=== PATIENT | male | born 1950 | race American Indian/Alaskan Native ===

== ENCOUNTER 2019-04-29 15:44 | Emergency (ER) | payer MEDICARE ==
--- NOTE | 2019-04-29 15:46 | EDM.PDOC ---
ED HPI GENERAL MEDICAL PROBLEM - General Chief Complaint: Lower Extremity Injury/Pain Stated Complaint: AMBULANCE Time Seen by Provider: 04/29/19 15:46 Source of Information: Reports: Patient, RN, RN Notes Reviewed History Limitations: Reports: No Limitations - History of Present Illness INITIAL COMMENTS - FREE TEXT/NARRATIVE: Patient presents to ER per [facility] with complaint of right hip pain and right arm pain. Patent states he fell last Saturday. States he is unsure if he was knocked out or not. Patient complains of right upper arm pain, right sided abdomen pain and right hip pain. States he did not come in earlier because he "hates hospitals". Onset Date: 04/22/19 Duration: Getting Worse Location: Reports: Other (right hip and arm ) Quality: Reports: Ache Severity: Severe Improves with: Reports: None Worsens with: Reports: None Associated Symptoms: Reports: No Other Symptoms Right Hip Pain Score (Numeric/FACES): 7 - Related Data Allergies Allergy/AdvReac Type Severity Reaction Status Date / Time No Known Allergies Allergy Verified 04/29/19 15:50 Review of Systems - Review of Systems Review Of Systems: Comprehensive ROS is negative, except as noted in HPI. ED EXAM, GENERAL - Physical Exam Exam: See Below Exam Limited By: No Limitations General Appearance: Alert Eye Exam: Bilateral Eye: EOMI, Normal Inspection, PERRL Ears: Normal External Exam, Normal Canal, Hearing Grossly Normal, Normal TMs Nose: Normal Inspection, Normal Mucosa, No Blood Throat/Mouth: Other (poor dental health) Head: Atraumatic, Normocephalic Neck: Normal Inspection, Supple, Non-Tender, Full Range of Motion Respiratory/Chest: Other (diminished) Cardiovascular: Normal Peripheral Pulses, Regular Rate, Rhythm, No Edema, No Gallop, No JVD, No Murmur, No Rub GI/Abdominal: Other (tender right) (Male) Exam: Deferred Rectal (Males) Exam: Deferred Back Exam: Normal Inspection, Full Range of Motion, NT Extremities: Other (pain right shoulder/upper arm and pain right hip. ) Neurological: Alert, Oriented, CN II-XII Intact, Normal Cognition, Normal Gait, Normal Reflexes, No Motor/Sensory Deficits Psychiatric: Normal Affect, Normal Mood Skin Exam: Warm, Dry, Intact, Normal Color, No Rash Lymphatic: No Adenopathy Course - Vital Signs Last Recorded V/S: Last Vital Signs Temp 98.9 F 04/29/19 15:44 Pulse 69 04/29/19 15:44 Resp 18 04/29/19 15:44 BP 122/61 04/29/19 15:44 Pulse Ox 99 04/29/19 15:44 - Orders/Labs/Meds Orders: Active Orders 24 hr Category Date Time Status Peripheral IV Care [RC] . DIRECTED Care 04/29/19 16:03 Active Peripheral IV Insertion Adult [OM.PC] Stat Oth 04/29/19 16:01 Ordered Labs: Laboratory Tests 04/29/19 04/29/19 04/29/19 Range/Units 16:18 16:18 16:45 WBC 3.1 L (5.0-10.0) 10^3/uL RBC 3.56 L (4.6-6.2) 10^6/uL Hgb 11.6 L (14.0-18.0) g/dL Hct 35.0 L (40.0-54.0) % MCV 98.3 (80-100) fL MCH 32.6 (27.0-34.0) pg MCHC 33.1 (33.0-35.0) g/dL Plt Count 56 L (150-450) 10^3/uL Neut % (Auto) 53.1 (42.2-75.2) % Lymph % (Auto) 20.5 (20.5-50.1) % [place] % (Auto) 20.5 H (2-8) % Eos % (Auto) 4.9 H (1.0-3.0) % Baso % (Auto) 1.0 (0.0-1.0) % Add Manual Diff Yes Neutrophils % (Manual) 61 (42-75) % Lymphocytes % (Manual) 21 (20-50) % Monocytes % (Manual) 11 H (2-8) % Eosinophils % (Manual) 6 H (1-3) % Metamyelocytes % 1 Platelet Estimate Decreased Sodium 139 (135-145) mmol/L Potassium 3.3 L (3.6-5.0) mmol/L Chloride 108 (101-111) mmol/L Carbon Dioxide 25.0 (21.0-31.0) mmol/L Anion Gap 9.3 BUN 13 (7-18) mg/dL Creatinine 0.7 (0.6-1.3) mg/dL Est Cr Clr Drug Dosing 109.07 mL/min Estimated GFR (MDRD) > 60 BUN/Creatinine Ratio 18.57 Glucose 99 (74-105) mg/dL Calcium 8.1 L (8.4-10.2) mg/dl Total Bilirubin 1.8 H (0.2-1.0) mg/dL AST 41 (10-42) IU/L ALT 22 (10-60) IU/L Alkaline Phosphatase 120 (42-121) IU/L Total Protein 6.9 (6.7-8.2) g/dl Albumin 3.0 L (3.2-5.5) g/dl Globulin 3.9 Albumin/Globulin Ratio 0.77 Urine Color Dark yellow (YELLOW) Urine Appearance Clear (CLEAR) Urine pH 7.5 (5.0-9.0) Ur Specific [place] 1.020 (1.005-1.030) Urine Protein Negative (NEGATIVE) Urine Glucose (UA) Negative (NEGATIVE) Urine Ketones Negative (NEGATIVE) Urine Occult Blood Negative (NEGATIVE) Urine Nitrite Negative (NEGATIVE) Urine Bilirubin Small H (NEGATIVE) Urine Urobilinogen 4.0 H (0.2-1.0) mg/dL Ur Leukocyte Esterase Negative (NEGATIVE) Meds: Medications Discontinued Medications Generic Name Dose Route Start Last Admin Trade Name Freq PRN Reason Stop Dose Admin Iopamidol 100 ml 04/29/19 16:18 04/29/19 16:43 Isovue-300 (61%) IVPUSH 04/29/19 16:19 75 ml ONETIME ONE Administration Sodium Chloride 10 ml 04/29/19 16:01 04/29/19 16:29 Saline Flush FLUSH 10 ml ASDIRECTED PRN Administration Keep Vein Open - Radiology Interpretation Free Text/Narrative:: head CT without contrast: atrophy. Chronic multi infarct ischemic disease. No skull fracture or signs of acute intracranial bleed. no mass lesions or hydrocephalus. Right shoulder x-ray: Evidence of previous orthopedic resection head and proximal diameter metaphysis of the right humerus. Evidence of old healed fractures of the glenoid of the right scapula. Underlying healed fracture deformity posterior lateral right fourth and fifth ribs. No acromial clavicular separation. No acute fracture right shoulder or upper thorax No pneumothorax. Abdomen pelvis CT with contrast: Solitary suspicious 2.6cm diameter vascular mass lesion right lobe of the liver could represent large hemangioma however suggest MRI follow-up (particularly if any known malignancies). Appearance not hematoma or abscess. See radiologist's report - Re-Assessments/Exams Free Text/Narrative Re-Assessment/Exam: Discussed patient care with Dr. Lyons, Neurosurgeon at [facility]. She states the patient should come to ER at [facility] and be admitted. Discussed patient care with Dr. Smiley in the ER at [facility] who agreed to accept the patient for transfer to [facility] in [place]. Departure - Departure Time of Disposition: 18:43 Disposition: DC/Tfer to Acute Hospital 02 Condition: Fair Clinical Impression: Compression fracture, Mass of right lobe of liver, Thrombocytopenia Fall at home Qualifiers: Encounter type: initial encounter Qualified Code(s): W19.XXXA - Unspecified fall, initial encounter; Y92.009 - Unspecified place in unspecified non- institutional (private) residence as the place of occurrence of the external cause Leukopenia Qualifiers: Leukopenia type: unspecified Qualified Code(s): D72.819 - Decreased white blood cell count, unspecified - Discharge Information *PRESCRIPTION DRUG MONITORING PROGRAM REVIEWED*: No *COPY OF PRESCRIPTION DRUG MONITORING REPORT IN PATIENT BAN: No Referrals: PCP,Unobtain [Primary Care Provider] - Forms: ED Department Discharge, Interfacility Transfer MAI Sepsis Event Note - Focused Exam Date Exam was Performed: 04/30/19 Time Exam was Performed: 07:24 - My Orders Last 24 Hours: My Active Orders 04/29/19 16:01 Peripheral IV Insertion Adult [OM.PC] Stat 04/29/19 16:03 Peripheral IV Care [RC] . DIRECTED - Assessment/Plan Last 24 Hours: My Active Orders 04/29/19 16:01 Peripheral IV Insertion Adult [OM.PC] Stat 04/29/19 16:03 Peripheral IV Care [RC] . DIRECTED
[2019-04-29] MEDS ORDERED: Sodium Chloride 0.9% 10 ML Syringe FLUSH PRN (16:01)
[2019-04-29] MEDS ORDERED: Iopamidol 612 MG/ML 100 ML Bottle IVPUSH ONE (16:18)
--- NOTE | 2019-04-29 16:41 | CT ---
EXAMINATION: Head wo Cont SEX: Male AGE: 68 years CLINICAL HISTORY: 68-year-old male injured in a fall. Scan technique: Volume acquisition of data emergency unenhanced CT scan of the head and brain obtained with patient lying supine on the Siemens multi slice scanner [place], [place]. All data archived in the PACS system for storage, reformatting axial/sagittal/coronal planes and study. No comparison exams immediately available. INTERPRETATION: Extensive midline falx, dense pineal, symmetric choroid plexus calcifications (faint calcifications in the basal ganglia, bilaterally). Severe atrophy pattern which is symmetric with underlying mirror-image normal ventricular system. No hydrocephalus. Uniformly thick bony calvarium without sign of skull fracture, underlying brain contusion or epidural/subdural hematoma. Multiple scattered areas of decreased attenuation in subcortical and deep white matter i.e. MID (multi-infarct disease). No supratentorial or posterior fossa mass lesion. No sign of acute intracerebral/intraventricular/subarachnoid bleed. 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 INTERPRETATION: Atrophy. Chronic multi-infarct ischemic disease. No skull fracture or signs of acute intracranial bleed. No mass lesions or hydrocephalus. 1. CONCLUSION:
--- NOTE | 2019-04-29 16:46 | CR ---
EXAMINATION: Shoulder Comp Rt SEX: Male AGE: 68 years CLINICAL HISTORY: 68-year-old male injured in a fall (7 days ago) complaining of right arm pain. Interpretation: Evidence of previous orthopedic resection head and proximal diametaphysis of the right humerus. Evidence of old healed fractures of the glenoid of the right scapula. Underlying healed fracture deformity posterior lateral right fourth and fifth ribs. No acromioclavicular separation. No acute fracture right shoulder or upper thorax. No pneumothorax.
--- NOTE | 2019-04-29 16:59 | CT ---
EXAMINATION: Abdomen Pelvis w Cont SEX: Male AGE: 68 years CLINICAL HISTORY: 68-year-old 200 pound male injured in a fall (7 days ago) complaining now of right arm, right hip, and abdominal pain. Rule out visceral laceration or rupture. Scan technique: Volume acquisition of data from the abdomen and pelvis obtained after without oral contrast but during intravenous ministration 75 cc nonionic Isovue contrast (3 cc/s via injector) while patient was lying supine on the Siemens multislice scanner [place], [place]. All data archived in the PACS system for storage, reformatting axial/sagittal/coronal planes and study. Interpretation: 1. Large heart and coronary artery calcifications. No pericardial effusion. Lung bases clear. 2. Osteoporosis and severe insufficiency FRACTURES T12, L1, L2 and L3 (vertebral plana) spine. No comparison films. 3. Orthopedic nail right hip. No acute fracture or dislocation either hip or pelvis. 4. Cholecystectomy. *Solitary suspicious 2.6 cm diameter vascular mass lesion right lobe of the liver could represent large hemangioma however suggest MRI follow-up (particularly if any known malignancies). Appearance not hematoma or abscess. 5. Stomach, spleen, pancreas, adrenal glands and kidneys unremarkable. No renal cortical mass lesion, nephrolithiasis or obstructive uropathy. Heterogenous density dense small midline prostate gland. Mild urinary bladder thickening suggesting chronic outlet obstruction. Clinical? 5. No pelvic or abdominal mass lesion, diverticulosis, mesenteric or retroperitoneal lymphadenopathy, inflammatory "dirty" peritoneal fat, mechanical bowel obstruction, ascites or free intraperitoneal air. CONCLUSION: Solitary intrahepatic lesion. No other indication primary or metastatic intraperitoneal disease. Lumbar fractures.
[2019-04-29 17:02] LABS: ANION GAP 9.3; CHLORIDE,CL 108 mmol/L (101-111); SODIUM,NA 139 mmol/L (135-145)
--- NOTE | 2019-05-04 16:29 | HP ---
HISTORY OF PRESENT ILLNESS: The patient is a 68-year-old gentleman, who was admitted to Swing bed for further PT and OT. He had a ground-level fall about 7 days ago, from which he sustained a right pubic ramus fracture and compression fracture of T12 and L1, L2, and L3. The patient was seen by Neurosurgery in [facility] and basically was managed conservatively, and the patient was discharged to swing bed for PT and OT. The patient currently denies any significant ongoing complaint except for some pain on his right hip and diminished range of motion on his right shoulder. He denies any chest pain, fever, chills, shortness of breath, abdominal pain, or any other complaints. PAST MEDICAL HISTORY: Remarkable for previous injury to the right shoulder and history of fracture of the ribs on the right and hypothyroidism. FAMILY HISTORY: Noncontributory. SOCIAL HISTORY: The patient is a nonsmoker. Drinks alcohol very occasionally, about once a month. No illicit drug use. REVIEW OF SYSTEMS: As in HPI. The rest of the review of systems is negative. CURRENT MEDICATIONS: Oxycodone, naproxen, and levothyroxine. ALLERGIES: No known drug allergies. PHYSICAL EXAMINATION: General: Very pleasant gentleman. He is alert and oriented, not in any acute distress. Vital Signs: Blood pressure is 133/61, pulse of 72, respiration of 18, temperature of 98.9, and saturation is 100% on room air. SHEENT: Normocephalic. There are pink palpebral conjunctivae. Sclerae anicteric. Neck: No JVD. No lymphadenopathy. Heart: Regular rate and rhythm. Normal S1 and S2. No gallops. No rubs. Lungs: Equal bilaterally. No crackles. No wheezing. Abdomen: Soft and nontender. Extremities: Negative for any pedal edema. No calf tenderness. ADMITTING DIAGNOSES: 1. History of fall with right pubic ramus fracture and compression of T12 and L1, L2, and L3. 2. Hypothyroidism. PLAN: We will continue with his present management, and we will continue with order for PT and OT. The patient is a full code. [facility] /[id number]
== END 2019-04-29 18:42 ==
LOC: DL.ED 15:44
DX: M25.551 Pain in right hip (principal); D72.819 Decreased white blood cell count, unspecified
CPT/HCPCS: 36415; 70450; 73030-RT; 74177; 80053; 81003; 85025; 99285; 99285-25; Q9967

== ENCOUNTER 2019-05-04 10:46 | Inpatient (IN) | payer MEDICARE, MEDICAID ==
[2019-05-04] MEDS ORDERED: Docusate Sodium 100 MG Cap PO PRN (14:44)
[2019-05-04] MEDS ORDERED: Acetaminophen 325 MG Tab PO PRN (14:44)
[2019-05-04] MEDS: oxyCODONE 5 MG Tab PO PRN (23:26)
[2019-05-05] MEDS: oxyCODONE 5 MG Tab PO PRN ×3 (03:53→15:13)
[2019-05-05] MEDS: Levothyroxine 150 MCG Tab PO SCH (06:15)
[2019-05-05 06:57] LABS: ANION GAP 10.1; CHLORIDE,CL 104 mmol/L (101-111); SODIUM,NA 134 mmol/L (135-145)
[2019-05-05] MEDS ORDERED: Enoxaparin 30 MG/0.3 ML Syringe SUBCUT SCH (09:00)
[2019-05-06] MEDS: oxyCODONE 5 MG Tab PO PRN ×3 (01:21→20:52)
[2019-05-06] MEDS: Levothyroxine 150 MCG Tab PO SCH (05:12)
[2019-05-07] MEDS: Levothyroxine 150 MCG Tab PO SCH (05:33)
[2019-05-07] MEDS: oxyCODONE 5 MG Tab PO PRN (10:58)
[2019-05-07] MEDS: Ciprofloxacin 500 MG Tab PO SCH (20:28)
[2019-05-08] MEDS: Levothyroxine 150 MCG Tab PO SCH (05:37)
[2019-05-08] MEDS: oxyCODONE 5 MG Tab PO PRN (08:51)
[2019-05-08] MEDS: Ciprofloxacin 500 MG Tab PO SCH ×2 (08:51→20:36)
[2019-05-08] MEDS ORDERED: Benzocaine/Cetylpyridinium/Menthol Lozenge MUCMEM PRN (09:35)
[2019-05-09] MEDS: Levothyroxine 150 MCG Tab PO SCH (06:19)
[2019-05-09] MEDS: oxyCODONE 5 MG Tab PO PRN (06:53)
[2019-05-09] MEDS: Ciprofloxacin 500 MG Tab PO SCH ×2 (09:19→20:15)
[2019-05-10] MEDS: Levothyroxine 150 MCG Tab PO SCH (06:07)
[2019-05-10] MEDS: Ciprofloxacin 500 MG Tab PO SCH ×2 (09:33→21:43)
--- NOTE | 2019-05-10 13:05 | PCM.PN ---
- General Info Date of Service: 05/10/19 Admission Dx/Problem (Free Text): admitted to Swing bed for continuation of PT/OT for right pubic ramus fracture and compression fracture of T12, L1, L2 and L3 Subjective Update: Pt was seen in room doing well, No nausea or vomiting, No fever or chill, appetite is good, pain is better and able to move with walker Functional Status: Reports: Pain Controlled, Tolerating Diet, Ambulating, Urinating - Review of Systems General: Reports: Weakness, Appetite (good). Denies: Fever, Chills HEENT: Denies: Sinus Congestion, Sore Throat, Visual Changes Pulmonary: Denies: Shortness of Breath, Cough, Sputum, Wheezing Cardiovascular: Denies: Chest Pain, Dyspnea on Exertion, Lightheadedness Gastrointestinal: Denies: Abdominal Pain, Diarrhea, Nausea, Vomiting Genitourinary: Denies: Dysuria, Burning, Urgency Musculoskeletal: Reports: Back Pain, Other (hip pain). Denies: Neck Pain, Shoulder Pain Skin: Denies: Cyanosis, Jaundice, Bruising, Pruritis Neurological: Denies: Confusion, Numbness, Tingling, Tremors Psychiatric: Reports: No Symptoms - Patient Data Vitals - Most Recent: Last Vital Signs Temp 36.8 C 05/10/19 08:00 Pulse 65 05/10/19 08:00 Resp 20 05/10/19 08:00 BP 142/63 H 05/10/19 08:00 Pulse Ox 95 05/10/19 08:00 Weight - Most Recent: 83.733 kg I&O - Last 24 Hours: Intake & Output 05/09/19 05/10/19 05/10/19 22:59 06:59 14:59 Intake Total 1930 469 7813 Output Total 500 600 120 Balance 1200 -400 920 Med Orders - Current: Current Medications Acetaminophen (Tylenol) 650 mg PO Q4H PRN PRN Reason: Pain (Mild 1-3)/fever Benzocaine/Menthol (Cepacol Sore Throat) 1 lozenge MUCMEM TID PRN PRN Reason: Cough Last Admin: 05/08/19 10:38 Dose: 1 lozenge Ciprofloxacin (Ciprofloxacin Hcl) 500 mg PO BID MICHELLE Last Admin: 05/10/19 09:33 Dose: 500 mg Docusate Sodium (Colace) 100 mg PO BID PRN PRN Reason: Constipation Levothyroxine Sodium (Levothyroxine) 150 mcg PO ACBREAKFAST MICHELLE Last Admin: 05/10/19 06:07 Dose: 150 mcg Oxycodone HCl (Oxycodone) 5 mg PO Q4H PRN PRN Reason: Pain (moderate 4-6) Last Admin: 05/09/19 06:53 Dose: 5 mg Discontinued Medications Enoxaparin Sodium (Lovenox) 30 mg SUBCUT DAILY MICHELLE - Exam Quality Assessment: DVT Prophylaxis. No: Supplemental Oxygen, Urine Catheter General: Alert, Oriented, Cooperative, No Acute Distress HEENT: Pupils Equal, EOMI, Mucous Membr. Moist/[place] Neck: No JVD, No Thyromegaly. No: Lymphadenopathy Lungs: Clear to Auscultation, Normal Respiratory Effort. No: Crackles, Wheezing Cardiovascular: Regular Rate, Regular Rhythm GI/Abdominal Exam: Normal Bowel Sounds, Soft, No Organomegaly, No Distention (Male) Exam: Deferred Back Exam: Normal Inspection Extremities: Normal Inspection, No Pedal Edema Skin: Warm, Dry, Intact Neurological: No New Focal Deficit Psy/Mental Status: Alert, Normal Affect, Normal Mood Sepsis Event Note - Evaluation Sepsis Screening Result: No Definite Risk - Focused Exam Vital Signs: Vital Signs Temp Pulse Resp BP Pulse Ox 05/10/19 08:00 36.8 C 65 20 142/63 H 95 Date Exam was Performed: 05/10/19 Time Exam was Performed: 12:53 - Problem List & Annotations (1) Compression fracture SNOMED Code(s): 554383840 Code(s): LNO3705 - Status: Acute Current Visit: No (2) Fall at home SNOMED Code(s): 15297101 Code(s): W19.XXXA - UNSPECIFIED FALL, INITIAL ENCOUNTER; Y92.009 - [facility] [email or web address] PLACE IN [facility] NON-INSTITUT (PRIVATE) RESIDENCE PLACE Status: Acute Current Visit: No - Problem List Review Problem List Initiated/Reviewed/Updated: Yes - Plan Plan:: This is a 68 y/o M with past medical history of right shoulder pain, Hypothyroidism and history of rib fracture. The pt is now admitted to swing bed for continuation of PT/OT. The pt had a ground Level fall and from which he sustained right pubic ramus fracture and compression fracture of T12, L1,L2 and L3. He was seen by Neurosurgery at [facility] and recommended conservative management. Impression and Plan: 1. S/P right pubic ramus fracture and compression fracture of T12, L1,L2 and L3 -Was seen by neurosurgery recommended conservative management -Will continue PT/OT -Continue pain control, is on oxycodone 2. Hypothyroidism: Continue Levothyroxine 3. Left arm antecubital Infiltration: pt had infiltration from IV and the area was warm and red, possible soft tissue infection -He is on Ciprofloxacin 250 mg BID and Improving, continue for another 5 days DVT prophylaxis: not on enoxaparin or heparin because of Low platelet Code status: Full Code
[2019-05-11] MEDS: Levothyroxine 150 MCG Tab PO SCH (06:08)
[2019-05-11] MEDS: Ciprofloxacin 500 MG Tab PO SCH ×2 (08:52→20:59)
[2019-05-11] MEDS: oxyCODONE 5 MG Tab PO PRN (16:11)
[2019-05-12] MEDS: oxyCODONE 5 MG Tab PO PRN ×2 (03:38→10:30)
[2019-05-12] MEDS: Levothyroxine 150 MCG Tab PO SCH (05:56)
[2019-05-12] MEDS: Ciprofloxacin 500 MG Tab PO SCH (10:33)
[2019-05-13] MEDS: oxyCODONE 5 MG Tab PO PRN ×3 (00:46→22:41)
[2019-05-13] MEDS: Levothyroxine 150 MCG Tab PO SCH (05:34)
[2019-05-14] MEDS: Levothyroxine 150 MCG Tab PO SCH (05:29)
[2019-05-14] MEDS: oxyCODONE 5 MG Tab PO PRN (05:30)
--- NOTE | 2019-05-14 11:03 | PCM.PN ---
- General Info Date of Service: 05/14/19 Subjective Update: No new complaint today Continues to have intermittent pain No nausea and no vomiting. Appetite is good - Review of Systems General: Reports: No Symptoms Pulmonary: Reports: No Symptoms Cardiovascular: Reports: No Symptoms Gastrointestinal: Reports: No Symptoms - Patient Data Vitals - Most Recent: Last Vital Signs Temp 36.9 C 05/14/19 07:39 Pulse 68 05/14/19 07:39 Resp 18 05/14/19 07:39 BP 120/60 05/14/19 07:39 Pulse Ox 97 05/14/19 07:39 Weight - Most Recent: 82.917 kg I&O - Last 24 Hours: Intake & Output 05/13/19 05/14/19 05/14/19 22:59 06:59 14:59 Intake Total 740 600 Output Total 200 Balance 740 400 Med Orders - Current: Current Medications Acetaminophen (Tylenol) 650 mg PO Q4H PRN PRN Reason: Pain (Mild 1-3)/fever Benzocaine/Menthol (Cepacol Sore Throat) 1 lozenge MUCMEM TID PRN PRN Reason: Cough Last Admin: 05/08/19 10:38 Dose: 1 lozenge Docusate Sodium (Colace) 100 mg PO BID PRN PRN Reason: Constipation Levothyroxine Sodium (Levothyroxine) 150 mcg PO ACBREAKFAST ON LICENSE OF [facility] Last Admin: 05/14/19 05:29 Dose: 150 mcg Oxycodone HCl (Oxycodone) 5 mg PO Q4H PRN PRN Reason: Pain (moderate 4-6) Last Admin: 05/14/19 05:30 Dose: 5 mg Discontinued Medications Ciprofloxacin (Ciprofloxacin Hcl) 500 mg PO BID ON LICENSE OF [facility] Stop: 05/12/19 09:01 Last Admin: 05/12/19 10:33 Dose: 500 mg Enoxaparin Sodium (Lovenox) 30 mg SUBCUT DAILY ON LICENSE OF [facility] - Exam General: Alert, Oriented, Cooperative Neck: Supple Lungs: Clear to Auscultation, Normal Respiratory Effort Sepsis Event Note - Evaluation Sepsis Screening Result: No Definite Risk - Focused Exam Vital Signs: Vital Signs Temp Pulse Resp BP Pulse Ox 05/14/19 07:39 36.9 C 68 18 120/60 97 Date Exam was Performed: 05/14/19 Time Exam was Performed: 11:01 - Problem List Review Problem List Initiated/Reviewed/Updated: Yes - Plan Plan:: This is a 68 y/o M with past medical history of right shoulder pain, Hypothyroidism and history of rib fracture. The pt is now admitted to swing bed for continuation of PT/OT. The pt had a ground Level fall and from which he sustained right pubic ramus fracture and compression fracture of T12, L1,L2 and L3. He was seen by Neurosurgery at [facility] and recommended conservative management. Impression and Plan: 1. S/P right pubic ramus fracture and compression fracture of T12, L1,L2 and L3 -Was seen by neurosurgery recommended conservative management -Will continue PT/OT -Continue pain control, is on oxycodone Continue current management 2. Hypothyroidism: Continue Levothyroxine 3. Left arm antecubital Infiltration: pt had infiltration from IV and the area was warm and red, possible soft tissue infection -He is on Ciprofloxacin 250 mg BID and Improving, continue for another 5 days Continue medications for now 4. Patient wants to go on a therapeutic leave. he'll be gone for less than 24 hours DVT prophylaxis: not on enoxaparin or heparin because of Low platelet Code status: Full Code
[2019-05-15] MEDS: Levothyroxine 150 MCG Tab PO SCH (06:48)
--- NOTE | 2019-05-15 12:05 | PCM.DCSUM1 ---
Discharge Summary - Hospital Course Free Text/Narrative:: This is a 68 y/o M with past medical history of right shoulder pain, Hypothyroidism and history of rib fracture. The pt was now admitted to swing bed for continuation of PT/OT. The pt had a ground Level fall and from which he sustained right pubic ramus fracture and compression fracture of T12, L1,L2 and L3. He was seen by Neurosurgery at [facility] and recommended conservative management.Did well with PT/OT. Will be discharged home. Impression and Plan: 1. S/P right pubic ramus fracture and compression fracture of T12, L1,L2 and L3 -Was seen by neurosurgery recommended conservative management -Continue pain control, is on oxycodone Continue current management 2. Hypothyroidism: Continue Levothyroxine 3. Left arm antecubital Infiltration: pt had infiltration from IV and the area was warm and red, possible soft tissue infection Was treated with ciprofloxacin. - Discharge Data Discharge Date: 05/15/19 Discharge Disposition: Home, Self-Care 01 Condition: Good - Referral to Home Health Primary Care Physician: Eduardo RODRIGUEZ [place] - Patient Summary/Data Consults: Consultations 05/04/19 14:44 OT Evaluation and Treatment [CONS] Routine PT Evaluation and Treatment [CONS] Routine - Discharge Plan Prescriptions/Med Rec: oxyCODONE 5 mg PO Q4HR PRN #20 tablet PRN Reason: Pain (Moderate 4-6) Home Medications: Home Meds Levothyroxine 150 mcg PO DAILY 05/04/19 [History] Naproxen 250 mg PO BID 05/04/19 [History] oxyCODONE 5 mg PO Q4HR PRN #20 tablet 05/15/19 [Rx] Patient Handouts: Oxycodone extended-release tablets - Discharge Summary/Plan Comment DC Time >30 min.: No - Patient Data Vitals - Most Recent: Last Vital Signs Temp 36.9 C 05/15/19 08:08 Pulse 60 05/15/19 08:08 Resp 16 05/15/19 08:08 BP 124/62 05/15/19 08:08 Pulse Ox 97 05/15/19 08:08 Weight - Most Recent: 82.917 kg I&O - Last 24 hours: Intake & Output 05/14/19 05/15/19 05/15/19 22:59 06:59 14:59 Intake Total 100 600 240 Output Total 1110 Balance 100 -510 240 Med Orders - Current: Current Medications Acetaminophen (Tylenol) 650 mg PO Q4H PRN PRN Reason: Pain (Mild 1-3)/fever Benzocaine/Menthol (Cepacol Sore Throat) 1 lozenge MUCMEM TID PRN PRN Reason: Cough Last Admin: 05/08/19 10:38 Dose: 1 lozenge Docusate Sodium (Colace) 100 mg PO BID PRN PRN Reason: Constipation Levothyroxine Sodium (Levothyroxine) 150 mcg PO ACBREAKFAST [facility] Last Admin: 05/15/19 06:48 Dose: 150 mcg Oxycodone HCl (Oxycodone) 5 mg PO Q4H PRN PRN Reason: Pain (moderate 4-6) Last Admin: 05/14/19 05:30 Dose: 5 mg Discontinued Medications Ciprofloxacin (Ciprofloxacin Hcl) 500 mg PO BID [facility] Stop: 05/12/19 09:01 Last Admin: 05/12/19 10:33 Dose: 500 mg Enoxaparin Sodium (Lovenox) 30 mg SUBCUT DAILY [facility]
== END 2019-05-15 10:30 | disposition home or self-care (01) | DRG 552 ==
LOC: UNDOADMIN 13:31 → DL.MS 13:31
PROVIDERS: ADMIT Internal Medicine; ATTEND Hospitalist
DX: S22.089A Unspecified fracture of T11-T12 vertebra, initial encounter for closed fracture (principal); S32.591A Other specified fracture of right pubis, initial encounter for closed fracture; S32.019A Unspecified fracture of first lumbar vertebra, initial encounter for closed fracture; S32.029A Unspecified fracture of second lumbar vertebra, initial encounter for closed fracture; S32.039A Unspecified fracture of third lumbar vertebra, initial encounter for closed fracture; T80.29XA Infection following other infusion, transfusion and therapeutic injection, initial encounter; W18.30XA Fall on same level, unspecified, initial encounter; E03.9 Hypothyroidism, unspecified; Z87.81 Personal history of (healed) traumatic fracture; Z79.890 Hormone replacement therapy; Z79.899 Other long term (current) drug therapy; Y92.009 Unspecified place in unspecified non-institutional (private) residence as the place of occurrence of the external cause
CPT/HCPCS: 36415; 80048; 85025; 85027; 97110-GO; 97110-GP; 97116-GP; 97162-GP; 97165-GO; 97530-GO; 97535-GO; A9270-GY